=== PATIENT | male | born 1945 | race African-American/Black ===

== ENCOUNTER 2017-03-15 13:23 | Observation (INO) | payer BC, MEDICARE ==
[~2017-03-15] VITALS: Ht 180.3 cm; Wt 65.0 kg
[~2017-03-15 13:23] MED LIST: TAMS0.4C67 PO
[2017-03-15 13:24] VITALS: BP 158/99; PULSE 91; RESP 18; TEMP 98.5; O2SAT 100
[2017-03-15] MEDS ORDERED: SODIUM CHLOR 0.9% 1000 ML INJ 1,000 ML IV SCH (14:03)
[2017-03-15 14:06] VITALS: O2SAT 97
[2017-03-15] MEDS ORDERED: ONDANSETRON HCL 4 MG/2 ML VIAL IVP ONE (14:15)
[2017-03-15] MEDS ORDERED: MORPHINE SULFATE 4 MG/ML INJ IV PUSH ONE (14:15)
[2017-03-15] MEDS ORDERED: LIDOCAINE VISCOUS 2% SOLN 15 ML UDC PO ONE (14:15)
[2017-03-15] MEDS ORDERED: SODIUM CHLORIDE 0.9% FLUSH 10 ML FLUSH IV FLUSH PRN ×2 (14:15→16:15)
[2017-03-15] MEDS ORDERED: ALUMINUM/MAGNESIUM/SIMETH 30 ML CUP PO ONE (14:15)
[2017-03-15] MEDS ORDERED: PANTOPRAZOLE SODIUM 40 MG VIAL IVP ONE (14:15)
--- NOTE | 2017-03-15 14:26 | PD ---
HPI Chief Complaint: GI Complaint Time Seen by Provider: 13:55 Travel History International Travel<30 days: No Contact w/Intl Traveler<30days: No Traveled to known affect area: No History of Present Illness HPI 71-year-old male here for evaluation of epigastric abdominal pain, nausea, and vomiting. Symptoms have been intermittent for the last month. Pain is described as sharp/burning, no modifying factors. Patient reports that he stop drinking alcohol and smoking earlier this year after doing so daily for several years. He is reporting a moderate amount of weight loss since this time. He denies chest pain or dyspnea. Currently the pain is 5 out of 10, no modifying factors. PFSH Past Medical History Genitourinary: Yes (Protatitis) Past Surgical History Prostatectomy: Yes (?) Social History Alcohol Use: No Tobacco Use: No Substance Use: No Allergies-Medications (Allergen,Severity, Reaction): Coded Allergies: No Known Allergies (Verified , 03/15/17) Reported Meds & Prescriptions Reported Meds & Active Scripts Active Review of Systems Except as stated in HPI: all other systems reviewed are Neg Physical Exam Narrative GENERAL: Well-developed, well-nourished, comfortable, no apparent distress. SKIN: Focused skin assessment warm/dry. HEAD: Atraumatic. Normocephalic. EYES: Pupils equal and round. No scleral icterus. No injection or drainage. ENT: No nasal bleeding or discharge. Mucous membranes pink and moist. NECK: Trachea midline. No JVD. CARDIOVASCULAR: Regular rate and rhythm. No murmur appreciated. RESPIRATORY: No accessory muscle use. Clear to auscultation. Breath sounds equal bilaterally. GASTROINTESTINAL: Abdomen soft, nondistended. Moderate epigastric tenderness without peritoneal signs. Rest of abdomen is soft and nontender. Normal bowel sounds. MUSCULOSKELETAL: No obvious deformities. No clubbing. No cyanosis. No edema. NEUROLOGICAL: Awake and alert. No obvious cranial nerve deficits. Motor grossly within normal limits. Normal speech. PSYCHIATRIC: Appropriate mood and affect; insight and judgment normal. Data Data Last Documented VS Vital Signs Date Time Temp Pulse Resp B/P Pulse Ox O2 Delivery O2 Flow Rate FiO2 03/15/17 14:06 97 Room Air 03/15/17 13:24 98.5 91 18 158/99 Orders Electrocardiogram (03/15/17 ) Complete Blood Count With Diff (03/15/17 14:03) Comprehensive Metabolic Panel (03/15/17 14:03) Lipase (03/15/17 14:03) Prothrombin Time / Inr (Pt) (03/15/17 14:03) Act Partial Throm Time (Ptt) (03/15/17 14:03) Urinalysis - C+S If Indicated (03/15/17 14:03) Ct Abd/Pel W Iv Contrast(Rout) (03/15/17 14:03) Iv Access Insert/Monitor (03/15/17 14:03) Ecg Monitoring (03/15/17 14:03) Oximetry (03/15/17 14:03) Morphine Inj (Morphine Inj) (03/15/17 14:15) Ondansetron Inj (Zofran Inj) (03/15/17 14:15) Pantoprazole Inj (Protonix Inj) (03/15/17 14:15) Sodium Chlor 0.9% 1000 Ml Inj (Ns 1000 M (03/15/17 14:03) Sodium Chloride 0.9% Flush (Ns Flush) (03/15/17 14:15) Al-Mag Hy-Si 40-40-4 Mg/Ml Liq (Mag-Al P (03/15/17 14:15) Lidocaine 2% Viscous (Xylocaine 2% Visco (03/15/17 14:15) Ckmb (Isoenzyme) Profile (03/15/17 14:03) Troponin I (03/15/17 14:03) CKMB (03/15/17 14:00) CKMB% (03/15/17 14:00) Iohexol 350 Inj (Omnipaque 350 Inj) (03/15/17 15:28) Labs Laboratory Tests Test 03/15/17 14:00 White Blood Count 11.0 TH/MM3 Red Blood Count 4.69 MIL/MM3 Hemoglobin 15.1 GM/DL Hematocrit 43.7 % Mean Corpuscular Volume 93.3 FL Mean Corpuscular Hemoglobin 32.2 PG Mean Corpuscular Hemoglobin 34.5 % Concent Red Cell Distribution Width 13.3 % Platelet Count 321 TH/MM3 Mean Platelet Volume 8.3 FL Neutrophils (%) (Auto) 79.9 % Lymphocytes (%) (Auto) 13.7 % Monocytes (%) (Auto) 5.9 % Eosinophils (%) (Auto) 0.0 % Basophils (%) (Auto) 0.5 % Neutrophils # (Auto) 8.8 TH/MM3 Lymphocytes # (Auto) 1.5 TH/MM3 Monocytes # (Auto) 0.7 TH/MM3 Eosinophils # (Auto) 0.0 TH/MM3 Basophils # (Auto) 0.1 TH/MM3 CBC Comment DIFF FINAL Differential Comment Prothrombin Time 10.8 SEC Prothromb Time International 1.0 RATIO Ratio Activated Partial 25.4 SEC Thromboplast Time Sodium Level 139 MEQ/L Potassium Level 3.4 MEQ/L Chloride Level 104 MEQ/L Carbon Dioxide Level 27.5 MEQ/L Anion Gap 8 MEQ/L Blood Urea Nitrogen 29 MG/DL Creatinine 1.12 MG/DL Estimat Glomerular Filtration 79 ML/MIN Rate Random Glucose 106 MG/DL Calcium Level 9.2 MG/DL Total Bilirubin 0.7 MG/DL Aspartate Amino Transf 12 U/L (AST/SGOT) Alanine Aminotransferase 18 U/L (ALT/SGPT) Alkaline Phosphatase 65 U/L Total Creatine Kinase 110 U/L Creatine Kinase MB 0.7 NG/ML Troponin I LESS THAN 0.02 NG/ML Total Protein 7.9 GM/DL Albumin 4.2 GM/DL Lipase 88 U/L MDM Medical Decision Making Medical Screen Exam Complete: Yes Emergency Medical Condition: Yes Interpretation(s) EKG: Sinus, rate 79, normal axis, normal intervals, T-wave inversions in inferior and anterior leads, no ST segment abnormalities. Differential Diagnosis Gastritis, peptic ulcer disease, pancreatitis, hepatobiliary disease, ACS Narrative Course Vital signs show heart rate 91, blood pressure 150/99, pulse ox 100% on room air , oral temp of 98.5F. CBC shows WBC 11, hemoglobin 15.1, hematocrit 43.7, platelets 321. CMP is markable for potassium 3.4, BUN 24, GFR 79, otherwise essentially unremarkable. Lipase is 88. Cardiac enzymes are negative. CT abdomen pelvis: CONCLUSION: Questionable peptic ulcer disease with some wall thickening of the distal stomach and first portion of the duodenum. Multiple renal cysts otherwise unremarkable study. Large bladder diverticulum posteriorly. Patient was given a GI cocktail, morphine, Protonix, Zofran, with moderate improvement in symptoms. His symptoms are most likely secondary to peptic ulcer disease, however he does have an abnormal EKG. I am concerned about possible cardiac etiology for the patient's pain. Given ongoing symptoms and abnormal EKG with epigastric pain which could be a chest pain equivalent, the patient will be admitted for overnight observation for serial cardiac enzymes and further treatment and evaluation. Case discussed with hospitalist Dr. Tarango who will admit the patient to his service. Diagnosis Primary Impression: Chest pain Qualified Code: R07.9 - Chest pain, unspecified type Additional Impression: Epigastric abdominal pain Admitting Information Admitting Physician Requests: Observation Vasile Du MD March 15, 2017 14:26
[2017-03-15 14:38] LABS: AUTOMATED NEUTROPHIL # 8.8 TH/MM3 (1.8-7.7); BASOPHIL # 0.1 TH/MM3 (0-0.2); BASOPHIL % 0.5 % (0.0-2.0); HEMATOCRIT 43.7 % (39.0-51.0); HEMO FLAGS DIFF FINAL; LYMPH % 13.7 % (9.0-44.0); LYMPHOCYTE # 1.5 TH/MM3 (1.0-4.8); MEAN CELL VOLUME 93.3 FL (80.0-100.0); MEAN CORPUSCULAR HEMOGLOBIN 32.2 PG (27.0-34.0); MEAN CORPUSCULAR HGB CONC 34.5 % (32.0-36.0); MONO % 5.9 % (0.0-8.0); NEUT % 79.9 % (16.0-70.0); PLATELET COUNT 321 TH/MM3 (150-450); RED BLOOD COUNT 4.69 MIL/MM3 (4.50-5.90); RED CELL DISTRIBUTION WIDTH 13.3 % (11.6-17.2)
[2017-03-15 14:47] LABS: APTT (PATIENT) 25.4 SEC (24.3-30.1); PROTHROMBIN TIME - PATIENT 10.8 SEC (9.8-11.6)
[2017-03-15 14:57] LABS: ALT (GPT) 18 U/L (12-78); ANION GAP 8 MEQ/L (5-15); AST (GOT) 12 U/L (15-37); BICARBONATE 27.5 MEQ/L (21.0-32.0); BLOOD UREA NITROGEN 29 MG/DL (7-18); CHLORIDE 104 MEQ/L (98-107); GLOMERULAR FILTRATION RATE 79 ML/MIN (>89); POTASSIUM 3.4 MEQ/L (3.5-5.1); SODIUM (NA) 139 MEQ/L (136-145)
[2017-03-15 15:06] LABS: ALKALINE PHOSPHATASE 65 U/L (45-117); CREATINE KINASE 110 U/L (39-308); TOTAL BILIRUBIN ADULT 0.7 MG/DL (0.2-1.0)
[2017-03-15 15:18] LABS: CKMB 0.7 NG/ML (0.5-3.6)
[2017-03-15] MEDS ORDERED: IOHEXOL 350 MG/ML 10 ML VIAL (for RAD DIAG) IV ONE (15:28)
--- NOTE | 2017-03-15 15:42 | RADRPT ---
EXAM DATE/TIME: 03/15/2017 15:24 [facility] COMPARISON: No previous studies available for comparison. INDICATIONS : Epigastric pain with nausea and vomiting. IV CONTRAST: 76 cc Omnipaque 350 (iohexol) IV ORAL CONTRAST: No oral contrast ingested. RADIATION DOSE: 9.96 CTDIvol (mGy) MEDICAL HISTORY : Carcinoma, prostate. SURGICAL HISTORY : Prostatectomy. ENCOUNTER: Initial ACUITY: 1 day PAIN SCALE: 6/10 LOCATION: Bilateral upper quadrant TECHNIQUE: Volumetric scanning of the abdomen and pelvis was performed. Using automated exposure control and ad justment of the mA and/or kV according to patient size, radiation dose was kept as low as reasonably achievable to obtain optimal diagnostic quality images. FINDINGS: LOWER LUNGS: The visualized lower lungs are clear. LIVER: Homogeneous density without lesion. There is no dilation of the biliary tree. No calcified gallston es. SPLEEN: Normal size without lesion. PANCREAS: Within normal limits. KIDNEYS: Normal in size and shape. There is no mass, stone or hydronephrosis other than multiple renal cysts, one on the right, 2 on the left. ADRENAL GLANDS: Within normal limits. VASCULAR: There is no aortic aneurysm. BOWEL/MESENTERY: There is a questionable inflammation or wall thickening of the distal stomach first portion of the du odenum correlate for peptic ulcer disease The small bowel, and colon demonstrate no acute abnormality . There is no free intraperitoneal air or fluid. ABDOMINAL WALL: Within normal limits. RETROPERITONEUM: There is no lymphadenopathy. BLADDER: No wall thickening or mass however there is a large bladder diverticulum posteriorly. REPRODUCTIVE: Within normal limits. INGUINAL: There is no lymphadenopathy or hernia. MUSCULOSKELETAL: Within normal limits for patient age. CONCLUSION: Questionable peptic ulcer disease with some wall thickening of the distal stomach and first portion o f the duodenum. Multiple renal cysts otherwise unremarkable study. Large bladder diverticulum posteri melanie. Lit Caruso MD on March 15, 2017 at 15:38 Board Certified Radiologist. This report was verified electronically.
[2017-03-15] MEDS ORDERED: ACETAMINOPHEN/HYDROcodone 325 MG/7.5 MG TAB PO PRN (16:15)
[2017-03-15] MEDS ORDERED: ASPIRIN 81 MG CHEW TAB PO ONE (16:15)
[2017-03-15] MEDS ORDERED: ACETAMINOPHEN 500 MG CPLT PO PRN (16:15)
[2017-03-15] MEDS ORDERED: MORPHINE SULFATE 4 MG/ML INJ IV PRN (16:15)
[2017-03-15] MEDS ORDERED: NITROGLYCERIN 0.4 MG SL 25 TABS/BTL SL PRN (16:15)
[2017-03-15 16:31] VITALS: BP 167/100; PULSE 85; RESP 16; O2SAT 97
[2017-03-15 17:57] VITALS: BP 160/100; PULSE 88; RESP 16; O2SAT 97
--- NOTE | 2017-03-15 18:07 | HHI.HP ---
[facility] No Primary Care Physician Admission Diagnosis chest pain, epigastric abdominal pain Diagnoses: Chief Complaint: Abdominal pain Travel History International Travel<30 Days: No Contact w/Intl Traveler <30 Da: No Traveled to Known Affected Are: No History of Present Illness Written by Wm Tay, acting as scribe for Dr. Tarango on 03/15/17 at 18:06. 71-year-old male with a past medical history of BPH who presented with epigastric pain, nausea, and vomiting. The patient states that for the past several months he's been having episodes of decreased appetite and vomiting. He states these episodes occur about once per month. He describes the vomitus is brown, denies any coffee-ground emesis. He states that when he has these episodes he feels hot but he has a fever. Currently he denies any nausea. He did get some pills in the emergency room that caused him some epigastric discomfort. He denies any chest pain or shortness of breath. He denies any diarrhea, constipation, bloody or dark stools. The patient states that he takes ibuprofen for back pain. He states he normally takes 4 pills in the morning and 4 pills in the evening. He denies any history of heart disease, diabetes, or high cholesterol. He does have insurance, but does not have a PCP or despatch clerk. Review of Systems Except as stated in HPI: all other systems reviewed are Neg Past Family Social History Past Medical History BPH, denies prostate cancer history Past Surgical History Prostate surgery for blockage/enlarged prostate Bilateral inguinal hernia repair Reported Medications Ibuprofen Allergies: Coded Allergies: No Known Allergies (Verified , 03/15/17) Active Ordered Medications Current Medications Medications (Trade) Dose Ordered Sig/Kira Route Start Time Stop Time Status Last Admin (NS Flush) 2 ml BID IV FLUSH 03/15/17 21:00 (NS Flush) 2 ml UNSCH PRN IV FLUSH 03/15/17 16:15 (Nitrostat Sl) 0.4 mg Q5M PRN SL 03/15/17 16:15 (Tylenol) 500 mg Q4H PRN PO 03/15/17 16:15 ([place] 7.5-325 Mg) 1 tab Q4H PRN PO 03/15/17 16:15 (Morphine Inj) 2 mg Q5M PRN IV 03/15/17 16:15 (Protonix) 40 mg DAILY PO 03/16/17 09:00 (Heparin Inj) 5,000 units Q8H SQ 03/15/17 21:00 Family History Reviewed, no family history pertinent to current chief complaint Social History The patient states he quit smoking and drinking earlier this year, but no more. He states that he had been smoking about 1 pack per week. He states that he had been drinking about 3 shots per night. He denies any drug use. Physical Exam Vital Signs Vital Signs Date Time Temp Pulse Resp B/P Pulse Ox O2 Delivery O2 Flow Rate FiO2 03/15/17 16:31 85 16 167/100 97 Room Air 03/15/17 14:06 97 Room Air 03/15/17 13:24 98.5 91 18 158/99 100 Physical Exam GENERAL: Well-developed well-nourished. In no acute distress. SKIN: Warm and dry. No lesions noted. HEENT: Normocephalic. Pupils equal and round. Mucous membranes pink and moist. CARDIOVASCULAR: Regular rate and rhythm. No murmur appreciated. RESPIRATORY: No accessory muscle use. Clear to auscultation. Breath sounds equal bilaterally. GASTROINTESTINAL: Abdomen soft, non-tender, nondistended. Bowel sounds x4. MUSCULOSKELETAL: No obvious deformities. No clubbing or cyanosis. No edema. NEUROLOGICAL: Awake and alert. No focal neurological deficits. Moves upper and lower extremities spontaneously. Normal speech. PSYCHIATRIC: Appropriate mood and affect; insight and judgment normal. Laboratory Laboratory Tests Test 03/15/17 14:00 White Blood Count 11.0 Red Blood Count 4.69 Hemoglobin 15.1 Hematocrit 43.7 Mean Corpuscular Volume 93.3 Mean Corpuscular Hemoglobin 32.2 Mean Corpuscular Hemoglobin 34.5 Concent Red Cell Distribution Width 13.3 Platelet Count 321 Mean Platelet Volume 8.3 Neutrophils (%) (Auto) 79.9 Lymphocytes (%) (Auto) 13.7 Monocytes (%) (Auto) 5.9 Eosinophils (%) (Auto) 0.0 Basophils (%) (Auto) 0.5 Neutrophils # (Auto) 8.8 Lymphocytes # (Auto) 1.5 Monocytes # (Auto) 0.7 Eosinophils # (Auto) 0.0 Basophils # (Auto) 0.1 CBC Comment DIFF FINAL Differential Comment Prothrombin Time 10.8 Prothromb Time International 1.0 Ratio Activated Partial 25.4 Thromboplast Time Sodium Level 139 Potassium Level 3.4 Chloride Level 104 Carbon Dioxide Level 27.5 Anion Gap 8 Blood Urea Nitrogen 29 Creatinine 1.12 Estimat Glomerular Filtration 79 Rate Random Glucose 106 Calcium Level 9.2 Total Bilirubin 0.7 Aspartate Amino Transf 12 (AST/SGOT) Alanine Aminotransferase 18 (ALT/SGPT) Alkaline Phosphatase 65 Total Creatine Kinase 110 Creatine Kinase MB 0.7 Troponin I LESS THAN 0.02 Total Protein 7.9 Albumin 4.2 Lipase 88 Result Diagram: 03/15/17 1400 03/15/17 1400 Imaging Last Impressions Abdomen/Pelvis CT 03/15/17 1403 Signed Impressions: Service Date/Time: , March 15, 2017 15:24 - CONCLUSION: Questionable peptic ulcer disease with some wall thickening of the distal stomach and first portion of the duodenum. Multiple renal cysts otherwise unremarkable study. Large bladder diverticulum posteriorly. Lit Caruso MD Assessment and Plan Assessment and Plan 71-year-old male with a past medical history of BPH who presented with epigastric pain, nausea, and vomiting Peptic ulcer disease: Likely NSAID induced. With associated episodes of epigastric pain, nausea, and vomiting, which have improved at this time. Reviewed: Abdominal CT shows possible peptic ulcer disease with some wall thickening of the distal stomach and first portion of the duodenum. Hemoglobin 15.1. -Start PPI and Carafate -Avoid NSAIDs, patient educated -Diet as tolerated -Antiemetics as needed -Recommended outpatient PCP and GI follow-up. Abnormal EKG: Patient denies any chest pain or shortness of breath. Reviewed: EKG with NSR, LVH, and nonspecific T-wave changes when compared to previous EKGs from 2011. -Rule out ACS per protocol with serial cardiac enzymes and EKGs -Monitor on telemetry DVT prophylaxis: SCDs Hypertension: Chronic, uncontrolled. The patient states that his blood pressure is been high for some time, but he is on no medications. Control BP. Start lisinopril. Vasotec as needed. PCP follow-up. Discussed Condition With Patient, ED staff Attending Statement This note was transcribed by chery Tay. I, Dr. Derek Tarango personally performed the history, physical exam, and medical decision making; and confirmed the accuracy of the information in the transcribed note. Authenticated by Dr. Derek Tarango on 03/15/17 at 18:14. Wm Tay March 15, 2017 18:07 Derek Tarango MD March 15, 2017 18:15
[2017-03-15] MEDS ORDERED: ENALAPRILAT 1.25 MG/ML VIAL IV PUSH PRN (18:15)
[2017-03-15] MEDS ORDERED: ONDANSETRON HCL 4 MG/2 ML VIAL IV PUSH PRN ×2 (18:15)
[2017-03-15 18:16] VITALS: BP 170/102; PULSE 79; RESP 17; TEMP 98.2; O2SAT 98
[2017-03-15] MEDS: LISINOPRIL 10 MG TAB PO SCH (18:43)
[2017-03-15 19:26] VITALS: BP 145/90; PULSE 78; RESP 19; TEMP 98.2; O2SAT 97
[2017-03-15] MEDS ORDERED: HEPARIN SODIUM - SQ 10,000 UNITS/ML VIAL SQ SCH (21:00)
[2017-03-15] MEDS: SODIUM CHLORIDE 0.9% FLUSH 10 ML FLUSH IV FLUSH SCH (21:10)
[2017-03-15 22:16] LABS: CREATINE KINASE 98 U/L (39-308)
[2017-03-16] VITALS (8 sets, daily range): BP systolic 100–121; BP diastolic 64–80; PULSE 57–72; RESP 18–21; TEMP 96.8–98.4; O2SAT 60–97
[2017-03-16 04:00] LABS: HDL CHOLESTEROL 46.2 MG/DL (40.0-60.0)
[2017-03-16 04:02] LABS: CREATINE KINASE 92 U/L (39-308)
[2017-03-16] MEDS: SUCRALFATE 1 GM TAB PO SCH ×2 (06:13→16:21)
[2017-03-16] MEDS ORDERED: PANTOPRAZOLE SOD 40 MG DELAYED RELEASE TAB PO SCH (09:00)
[2017-03-16] MEDS: SODIUM CHLORIDE 0.9% FLUSH 10 ML FLUSH IV FLUSH SCH ×2 (10:10→20:31)
[2017-03-16] MEDS: LISINOPRIL 10 MG TAB PO SCH (10:10)
--- NOTE | 2017-03-16 10:19 | HHI.PR ---
Subjective Remarks Follow up chest pain and epigastric pain. Patient states his abdominal pain and chest pain is getting better, and no further vomiting since admission. He is still unable to tolerate a diet, and states he has no appetite. No fever or chills. No history of EGD or colonoscopy. Objective Vitals Vital Signs Date Time Temp Pulse Resp B/P Pulse Ox O2 Delivery O2 Flow Rate FiO2 03/16/17 08:35 98.2 60 18 104/65 60 03/16/17 03:54 97.8 72 21 100/64 95 03/16/17 00:44 72 03/16/17 00:16 97.9 67 20 102/67 97 03/15/17 21:37 21 03/15/17 19:26 98.2 78 19 145/90 97 03/15/17 18:16 98.2 79 17 170/102 98 03/15/17 17:57 88 16 160/100 97 Room Air 03/15/17 16:31 85 16 167/100 97 Room Air 03/15/17 14:06 97 Room Air 03/15/17 13:24 98.5 91 18 158/99 100 Result Diagram: 03/15/17 1400 03/15/17 1400 Imaging Last Impressions Abdomen/Pelvis CT 03/15/17 1403 Signed Impressions: Service Date/Time: February 15:24 - CONCLUSION: Questionable peptic ulcer disease with some wall thickening of the distal stomach and first portion of the duodenum. Multiple renal cysts otherwise unremarkable study. Large bladder diverticulum posteriorly. Lit Caruso MD Objective Remarks GENERAL: Well-developed well-nourished. In no acute distress. SKIN: Warm and dry. No lesions noted. HEENT: Normocephalic. Pupils equal and round. Mucous membranes pink and moist. CARDIOVASCULAR: Regular rate and rhythm. No murmur appreciated. RESPIRATORY: No accessory muscle use. Clear to auscultation. Breath sounds equal bilaterally. GASTROINTESTINAL: Abdomen soft, slight epigastic tenderness, nondistended. Bowel sounds x4. MUSCULOSKELETAL: No obvious deformities. No clubbing or cyanosis. No edema. NEUROLOGICAL: Awake and alert. No focal neurological deficits. Moves upper and lower extremities spontaneously. Normal speech. PSYCHIATRIC: Appropriate mood and affect; insight and judgment normal. Medications and IVs Current Medications Medications (Trade) Dose Ordered Sig/Kira Route Start Time Stop Time Status Last Admin (NS Flush) 2 ml BID IV FLUSH 03/15/17 21:00 03/15/17 21:10 (NS Flush) 2 ml UNSCH PRN IV FLUSH 03/15/17 16:15 (Nitrostat Sl) 0.4 mg Q5M PRN SL 03/15/17 16:15 (Tylenol) 500 mg Q4H PRN PO 03/15/17 16:15 ([place] 7.5-325 Mg) 1 tab Q4H PRN PO 03/15/17 16:15 (Morphine Inj) 2 mg Q5M PRN IV 03/15/17 16:15 (Protonix) 40 mg DAILY PO 03/16/17 09:00 (Carafate) 1 gm BIDAC PO 03/16/17 07:00 03/16/17 06:13 (Zofran Inj) 4 mg Q6HR PRN IV PUSH 03/15/17 18:15 (Vasotec Inj) 1.25 mg Q6H PRN IV PUSH 03/15/17 18:15 (Prinivil) 10 mg DAILY PO 03/15/17 18:15 03/15/17 18:43 A/P Problem List: (1) Peptic ulcer disease ICD Code: K27.9 Status: Acute (2) Chest pain ICD Code: R07.9 Status: Acute (3) Epigastric abdominal pain ICD Code: R10.13 Status: Acute (4) HTN (hypertension) ICD Code: I10 Status: Chronic Assessment and Plan 71-year-old male with a past medical history of BPH who presented with epigastric pain, nausea, and vomiting Peptic ulcer disease: Likely NSAID induced. With associated episodes of epigastric pain, nausea, and vomiting, which have improved at this time. Reviewed: Abdominal CT shows possible peptic ulcer disease with some wall thickening of the distal stomach and first portion of the duodenum. Hemoglobin 15.1. -Cont PPI and Carafate -Avoid NSAIDs, patient educated -Diet as tolerated -Antiemetics as needed -Cont GI, patient is unable to tolerate diet, with epigastric pain, GI will plan for EGD Abnormal EKG: Patient denies any chest pain or shortness of breath. Reviewed: EKG with NSR, LVH, and nonspecific T-wave changes when compared to previous EKGs from 2010. -Rule out ACS per protocol with serial cardiac enzymes and EKGs, troponin .02 x 3 sets, EKG shows t wave inversion -Monitor on telemetry -Lexiscan possibly tomorrow if pain is not GI related, per patient and EMR last stress test was 2010 Hypertension: Chronic, uncontrolled. The patient states that his blood pressure is been high for some time, but he is on no medications. Currently WNL -Control BP. -Cont lisinopril. -Vasotec as needed. DVT prophylaxis: SCDs Discharge Planning Pending GI workup and lexiscan Problem Qualifiers (1) Chest pain: Qualified Code: R07.9 - Chest pain, unspecified type Samara Ivan March 16, 2017 10:19
--- NOTE | 2017-03-16 10:49 | PD.CONS ---
HPI History of Present Illness This is a 71 year old male who presented to the ER for evaluation of abdominal pain. He states that he has been having an intermittent mid epigastric pain sharp pain without radiation for the past month. He states initially, this was not as frequent, although he does state that when he would have an episode, he would have associated nausea, vomiting, and decreased appetite. He has had 2 prior episodes of this and then this current episode started Sunday and was more severe than usual. He was not able to keep anything down and vomited brown gastric secretions whenever he tried to take po. He denies any hematemesis. The pain is the same pain, but more severe than usual- "5" on scale 0-10. He denies any diarrhea or constipation, melena, or hematochezia. He does occasionally have heartburn and will take a TUMS on a rare occasion. Abdomen/Pelvis CT (03/15/17)----> Questionable peptic ulcer disease with some wall thickening of the distal stomach and first portion of the duodenum. Multiple renal cysts otherwise unremarkable study. Large bladder diverticulum posteriorly. He denies any prior history of peptic ulcer disease. He takes at least 8 ibuprofen per day for chronic back pain. He used to drink a couple of alcoholic drinks per day, but stopped smoking and drinking the first of the year. He denies ever having an EGD/Colonoscopy. He denies any family history of esophageal, gastric, or colorectal cancer. PFSH Past Medical History BPH Past Surgical History Prostate surgery for blockage/enlarged prostate Bilateral inguinal hernia repair Coded Allergies: No Known Allergies (Verified , 03/15/17) Medications Allergies Coded Allergies Type Severity Reaction Last Updated Verified No Known Allergies 03/15/17 Yes Active Scripts Medications Dose Route/Sig Days Date Category Ibuprofen at least 8 per day for chronic back pain Family History Denies any family hx of esophageal, gastric, or colorectal cancer. Social History The patient states he quit smoking and drinking the beginning of this year. He was smoking about 1 pack per week and having 2-3 drinks per night. Review of Systems Constitutional: COMPLAINS OF: Fatigue, Weight loss (minimal), Change in appetite Respiratory: DENIES: Cough, Shortness of breath Cardiovascular: COMPLAINS OF: Chest pain Gastrointestinal: COMPLAINS OF: Abdominal pain, Nausea, Vomiting, Heartburn, DENIES: Black stools, Bloody stools, Constipation, Diarrhea, Hematemesis Musculoskeletal: DENIES: Joint pain Integumentary: DENIES: Abnormal pigmentation Neurologic: DENIES: Headache Psychiatric: DENIES: Confusion GI Exam Vitals I&O Vital Signs Date Time Temp Pulse Resp B/P Pulse Ox O2 Delivery O2 Flow Rate FiO2 03/16/17 08:35 98.2 60 18 104/65 60 03/16/17 03:54 97.8 72 21 100/64 95 03/16/17 00:44 72 03/16/17 00:16 97.9 67 20 102/67 97 03/15/17 21:37 21 03/15/17 19:26 98.2 78 19 145/90 97 03/15/17 18:16 98.2 79 17 170/102 98 03/15/17 17:57 88 16 160/100 97 Room Air 03/15/17 16:31 85 16 167/100 97 Room Air 03/15/17 14:06 97 Room Air 03/15/17 13:24 98.5 91 18 158/99 100 Imaging Last Impressions Abdomen/Pelvis CT 03/15/17 1403 Signed Impressions: Service Date/Time: February 15:24 - CONCLUSION: Questionable peptic ulcer disease with some wall thickening of the distal stomach and first portion of the duodenum. Multiple renal cysts otherwise unremarkable study. Large bladder diverticulum posteriorly. Lit Caruso MD Laboratory Test 03/15/17 03/15/17 03/16/17 14:00 21:08 03:07 White Blood Count 11.0 TH/MM3 Red Blood Count 4.69 MIL/MM3 Hemoglobin 15.1 GM/DL Hematocrit 43.7 % Mean Corpuscular Volume 93.3 FL Mean Corpuscular Hemoglobin 32.2 PG Mean Corpuscular Hemoglobin 34.5 % Concent Red Cell Distribution Width 13.3 % Platelet Count 321 TH/MM3 Mean Platelet Volume 8.3 FL Neutrophils (%) (Auto) 79.9 % Lymphocytes (%) (Auto) 13.7 % Monocytes (%) (Auto) 5.9 % Eosinophils (%) (Auto) 0.0 % Basophils (%) (Auto) 0.5 % Neutrophils # (Auto) 8.8 TH/MM3 Lymphocytes # (Auto) 1.5 TH/MM3 Monocytes # (Auto) 0.7 TH/MM3 Eosinophils # (Auto) 0.0 TH/MM3 Basophils # (Auto) 0.1 TH/MM3 CBC Comment DIFF FINAL Differential Comment Prothrombin Time 10.8 SEC Prothromb Time International 1.0 RATIO Ratio Activated Partial 25.4 SEC Thromboplast Time Sodium Level 139 MEQ/L Potassium Level 3.4 MEQ/L Chloride Level 104 MEQ/L Carbon Dioxide Level 27.5 MEQ/L Anion Gap 8 MEQ/L Blood Urea Nitrogen 29 MG/DL Creatinine 1.12 MG/DL Estimat Glomerular Filtration 79 ML/MIN Rate Random Glucose 106 MG/DL Calcium Level 9.2 MG/DL Total Bilirubin 0.7 MG/DL Aspartate Amino Transf 12 U/L (AST/SGOT) Alanine Aminotransferase 18 U/L (ALT/SGPT) Alkaline Phosphatase 65 U/L Total Creatine Kinase 110 U/L 98 U/L 92 U/L Creatine Kinase MB 0.7 NG/ML Troponin I LESS THAN 0.02 LESS THAN 0.02 LESS THAN 0.02 NG/ML NG/ML NG/ML Total Protein 7.9 GM/DL Albumin 4.2 GM/DL Lipase 88 U/L Triglycerides Level 97 MG/DL Cholesterol Level 212 MG/DL LDL Cholesterol 146 MG/DL HDL Cholesterol 46.2 MG/DL Cholesterol/HDL Ratio 4.58 RATIO Physical Examination HEENT: Normocephalic; atraumatic; no jaundice. CHEST: CTA CARDIAC: RRR ABDOMEN: Soft, nondistended, epigastric tenderness no hepatosplenomegaly; bowel sounds are present in all four quadrants. EXTREMITIES: No clubbing, cyanosis, or edema. SKIN: Normal; no rash; no jaundice. [employer]: No focal deficits; alert and oriented times three. Assessment and Plan Plan ASSESSMENT: - Epigastric pain with abnormal imaging on CT suspicious for peptic ulcer disease. Abdomen/Pelvis CT (03/15/17)----> Questionable peptic ulcer disease with some wall thickening of the distal stomach and first portion of the duodenum. Multiple renal cysts otherwise unremarkable study. Large bladder diverticulum posteriorly. He denies any prior history of peptic ulcer disease. He takes at least 8 ibuprofen per day for chronic back pain. Intermittent epigastric pain with associated decreased appetite, n/v (nonbloody) x 1 month, this episode began Sunday. No hx of PUD. Never had egd/colonoscopy. HH stable. NPO. PPI. - GERD. Occasional symptoms. Takes TUMS as needed at home. - Hyperlipidemia, BPH per primary PLAN: - Plan for EGD today - Obtain consents - NPO - Cont. PPI - Monitor labs - Further recommendations to follow based on results of above - PT seen and examined by Dr. Copeland and myself and this note is written on his behalf Radhika Ponce March 16, 2017 10:49
[2017-03-16 13:42] LABS: BLOOD, URINE NEG (NEG); GLUCOSE,URINE NEG (NEG); KETONE, URINE 10 mg/dL (NEG); MUCUS URINE FEW /lpf (OCC); NITRITE,URINE NEG (NEG); PH, URINE 6.5 (5.0-8.5); SQUAMOUS EPITHELIAL CELL URINE <1 /hpf (0-5); URINE COLOR YELLOW (YELLW/STRAW)
[2017-03-16 13:46] LABS: AUTOMATED NEUTROPHIL # 3.5 TH/MM3 (1.8-7.7); BASOPHIL % 0.6 % (0.0-2.0); EOSINOPHIL % 0.5 % (0.0-4.0); HEMATOCRIT 40.3 % (39.0-51.0); HEMO FLAGS DIFF FINAL; LYMPH % 40.9 % (9.0-44.0); MEAN CELL VOLUME 94.2 FL (80.0-100.0); MEAN CORPUSCULAR HEMOGLOBIN 31.2 PG (27.0-34.0); MEAN CORPUSCULAR HGB CONC 33.1 % (32.0-36.0); MONO % 9.5 % (0.0-8.0); NEUT % 48.5 % (16.0-70.0); PLATELET COUNT 286 TH/MM3 (150-450); RED BLOOD COUNT 4.27 MIL/MM3 (4.50-5.90); RED CELL DISTRIBUTION WIDTH 13.4 % (11.6-17.2); WHITE BLOOD COUNT 7.2 TH/MM3 (4.0-11.0)
[2017-03-16 13:47] LABS: COMMENT (UR) CULT NOT INDICATED; CULTURE IF INDICATED CULT NOT INDICATED
[2017-03-16 14:02] LABS: BICARBONATE 29.7 MEQ/L (21.0-32.0); POTASSIUM 3.5 MEQ/L (3.5-5.1)
[2017-03-16] MEDS: PANTOPRAZOLE SOD 40 MG DELAYED RELEASE TAB PO SCH (20:30)
--- NOTE | 2017-03-16 21:07 | EKG ---
Date Performed: 03/16/2017 Time Performed: 02:32:36 PTAGE: 71 years EKG: Sinus rhythm MODERATE T-WAVE ABNORMALITY, CONSIDER ANTEROLATERAL ISCHEMIA MODERATE T-WAVE ABNORMALITY, CONSIDER I NFERIOR ISCHEMIA ABNORMAL ECG PREVIOUS TRACING : 03/15/2017 13.36 Compared to prior tracing no significant change DOCTOR: Sha Lainez Interpretating Date/Time 03/16/2017 21:06:35
--- NOTE | 2017-03-16 21:30 | EKG ---
Date Performed: 03/15/2017 Time Performed: 19:59:59 PTAGE: 71 years EKG: Sinus rhythm WITH OCCASIONAL SUPRAVENTRICULAR PREMATURE COMPLEXES MODERATE T-WAVE ABNORMALITY, CONSIDER ANTERIOR ISCHEMIA ABNORMAL ECG NO PREVIOUS TRACING DOCTOR: Sha Lainez Interpretating Date/Time 03/16/2017 21:28:36
--- NOTE | 2017-03-16 21:49 | EKG ---
Date Performed: 03/15/2017 Time Performed: 13:36:08 PTAGE: 71 years EKG: Sinus rhythm NONSPECIFIC T-WAVE ABNORMALITY BORDERLINE ECG PREVIOUS TRACING : 10/26/2011 10.48 Compared to prior tracing no significant change DOCTOR: Sha Lainez Interpretating Date/Time 03/16/2017 21:49:23
[2017-03-17] VITALS (9 sets, daily range): BP systolic 99–132; BP diastolic 60–85; PULSE 56–76; RESP 18; TEMP 96.8–98.8; O2SAT 96–99
[2017-03-17 06:06] LABS: AUTOMATED NEUTROPHIL # 2.8 TH/MM3 (1.8-7.7); BASOPHIL # 0.1 TH/MM3 (0-0.2); BASOPHIL % 1.1 % (0.0-2.0); EOSINOPHIL # 0.1 TH/MM3 (0-0.4); EOSINOPHIL % 1.5 % (0.0-4.0); HEMATOCRIT 39.4 % (39.0-51.0); HEMO FLAGS DIFF FINAL; LYMPH % 43.1 % (9.0-44.0); LYMPHOCYTE # 2.8 TH/MM3 (1.0-4.8); MEAN CELL VOLUME 94.1 FL (80.0-100.0); MEAN CORPUSCULAR HEMOGLOBIN 30.9 PG (27.0-34.0); MEAN CORPUSCULAR HGB CONC 32.8 % (32.0-36.0); MONO % 10.4 % (0.0-8.0); NEUT % 43.9 % (16.0-70.0); PLATELET COUNT 266 TH/MM3 (150-450); RED BLOOD COUNT 4.18 MIL/MM3 (4.50-5.90); RED CELL DISTRIBUTION WIDTH 13.1 % (11.6-17.2); WHITE BLOOD COUNT 6.4 TH/MM3 (4.0-11.0)
[2017-03-17 06:23] LABS: BICARBONATE 27.8 MEQ/L (21.0-32.0); POTASSIUM 3.4 MEQ/L (3.5-5.1)
[2017-03-17] MEDS: SUCRALFATE 1 GM TAB PO SCH ×2 (06:23→16:27)
--- NOTE | 2017-03-17 08:36 | HHI.PR ---
Subjective Remarks Follow up for epigastric pain. The patient reports feeling better today. Denies any significant epigastric pain, says occasionally he just feels sore. Denies any chest pains. Denies any nausea/vomiting. Going for EGD today. He states he has his appetite back and wants to eat after the procedure. Objective Vitals Vital Signs Date Time Temp Pulse Resp B/P Pulse Ox O2 Delivery O2 Flow Rate FiO2 03/17/17 08:26 98.0 66 18 118/72 96 03/17/17 04:20 98.4 65 18 99/60 97 03/17/17 00:59 60 03/17/17 00:21 97.8 56 18 120/74 99 03/16/17 20:00 98.4 62 18 121/76 97 03/16/17 16:27 57 03/16/17 15:44 97.9 68 18 112/80 95 03/16/17 12:19 96.8 63 18 112/70 96 03/16/17 08:35 98.2 60 18 104/65 60 Result Diagram: 03/17/17 0427 03/17/17 0427 Imaging Last Impressions Abdomen/Pelvis CT 03/15/17 1403 Signed Impressions: Service Date/Time: February 15:24 - CONCLUSION: Questionable peptic ulcer disease with some wall thickening of the distal stomach and first portion of the duodenum. Multiple renal cysts otherwise unremarkable study. Large bladder diverticulum posteriorly. Lit Caruso MD Objective Remarks GENERAL: Well-nourished, well-developed male patient in [facility]. SKIN: Warm and dry. No rash. HEENT: Normocephalic. Atraumatic. Pupils equal and round. Mucous membranes pink and moist. NECK: Supple. Trachea midline. CARDIOVASCULAR: Regular rate and rhythm. S1, S2 noted. No murmur appreciated. RESPIRATORY: No accessory muscle use. Clear to auscultation. Breath sounds equal bilaterally. GASTROINTESTINAL: Abdomen soft, non-tender, nondistended. Normoactive bowel sounds x4. MUSCULOSKELETAL: No obvious deformities. Extremities without clubbing, cyanosis , or edema. NEUROLOGICAL: Awake and alert. No obvious cranial nerve deficits. Motor grossly within normal limits. Normal speech. PSYCHIATRIC: Appropriate mood and affect; insight and judgment normal. Medications and IVs Current Medications Medications (Trade) Dose Ordered Sig/Kira Route Start Time Stop Time Status Last Admin (NS Flush) 2 ml BID IV FLUSH 03/15/17 21:00 03/16/17 20:31 (NS Flush) 2 ml UNSCH PRN IV FLUSH 03/15/17 16:15 (Nitrostat Sl) 0.4 mg Q5M PRN SL 03/15/17 16:15 (Tylenol) 500 mg Q4H PRN PO 03/15/17 16:15 ([place] 7.5-325 Mg) 1 tab Q4H PRN PO 03/15/17 16:15 (Morphine Inj) 2 mg Q5M PRN IV 03/15/17 16:15 (Carafate) 1 gm BIDAC PO 03/16/17 07:00 03/17/17 06:23 (Zofran Inj) 4 mg Q6HR PRN IV PUSH 03/15/17 18:15 (Vasotec Inj) 1.25 mg Q6H PRN IV PUSH 03/15/17 18:15 (Prinivil) 10 mg DAILY PO 03/15/17 18:15 03/16/17 10:10 (Protonix) 40 mg BID PO 03/16/17 21:00 03/16/17 20:30 A/P Problem List: (1) Peptic ulcer disease ICD Code: K27.9 Status: Acute (2) Chest pain ICD Code: R07.9 Status: Acute (3) Epigastric abdominal pain ICD Code: R10.13 Status: Acute (4) HTN (hypertension) ICD Code: I10 Status: Chronic Assessment and Plan 71-year-old male with a past medical history of BPH who presented with epigastric pain, nausea, and vomiting Peptic ulcer disease: suspect NSAID induced, patient taking 8 ibuprofen tabs daily for chronic back pain. Associated episodes of epigastric pain, nausea, and vomiting, which have improved at this time. Reviewed: Abdominal CT shows possible peptic ulcer disease with some wall thickening of the distal stomach and first portion of the duodenum. Hemoglobin 15.1. -Cont PPI and Carafate -Avoid NSAIDs, patient educated -Diet as tolerated -Antiemetics as needed -Consult GI, plan for EGD today -diet per GI after procedure Abnormal EKG: Patient denies any chest pain or shortness of breath. Reviewed: EKG with NSR, LVH, and nonspecific T-wave changes when compared to previous EKGs from 2011. -Ruled out ACS per protocol with serial cardiac enzymes and EKGs, troponin .02 x 3 sets, EKG shows t wave inversion -Monitor on telemetry -Per patient and EMR last stress test was 2010, patient does not want to stay in hospital for stress test which is reasonable at this time with NO chest pain and negative troponins, recommended he talk with his PCP about referral to cardiology for outpatient nuclear stress test Hypertension: Chronic, uncontrolled. The patient states that his blood pressure is been high for some time, but he is not on medications. Currently WNL -Control BP. -Continue lisinopril. -Vasotec as needed. -BP much improved BRENDA: Cr 1.41, suspect secondary to dehydration from recent vomiting -give IVF -monitor BMP, renal function improving DVT prophylaxis: SCDs, avoid chemical prophylaxis with upcoming procedure Discharge Planning Possible discharge today after EGD. Discharge patient to home Condition on discharge: Improved Heart Healthy Diet as tolerated Ad Diane activity Rx written: Protonix, Carafate Follow-up with primary care physician, cardiology, and gastroenterology Problem Qualifiers (1) Chest pain: Qualified Code: R07.9 - Chest pain, unspecified type Becky Rascon PA-C March 17, 2017 8:36 am
[2017-03-17] MEDS: LISINOPRIL 10 MG TAB PO SCH (08:40)
[2017-03-17] MEDS: SODIUM CHLORIDE 0.9% FLUSH 10 ML FLUSH IV FLUSH SCH ×2 (08:40→21:26)
[2017-03-17] MEDS: PANTOPRAZOLE SOD 40 MG DELAYED RELEASE TAB PO SCH ×2 (08:40→21:26)
--- NOTE | 2017-03-17 13:35 | PD.PROCEDR ---
GI Procedure REFERRING PHYSICIAN Marcos PROCEDURE PERFORMED EGD with biopsy INDICATION FOR PROCEDURE Hematemesis PROCEDURE: The procedure, risks and benefits were discussed with Mr. Sumner and informed consent was obtained. Anesthesia sedated him with Diprivan. He was placed in the left lateral decubitus position. EGD: The Pentax videoscope was introduced through the oropharynx and advanced to the second portion of the duodenum under direct visualization. Retroflexion was performed in the stomach. FINDINGS: The esophagus this was unremarkable The stomach there was a small hiatal hernia there was a moderately sized antral ulcer deep but clean-based with raised edges these were biopsied there was a second smaller ulcer in the antrum clean base no visible vessel no blood or bleeding in the stomach the rest of the gastric mucosa was unremarkable The duodenum this was normal ESTIMATED BLOOD LOSS: None SPECIMENS REMOVED: Gastric samples COMPLICATIONS: None IMPRESSION: Gastric ulcers PLAN: Await biopsy Avoid NSAIDs Continue PPI Supportive care Monitor labs and transfuse if needed EGD in 2 months If all is stable tomorrow May advance diet and if tolerated may be discharged later in the day Ilia Kurtz MD March 17, 2017 13:34
[2017-03-17] MEDS ORDERED: PROPOFOL 200 MG/20 ML AMP IV ONE (13:43)
[2017-03-17] MEDS ORDERED: DO NOT ADM ANY ANTICOAGULANT DRUGS PRN (14:00)
[2017-03-17] MEDS ORDERED: POTASSIUM CHLORIDE 20 MEQ CONTROLLED RELEASE TAB PO ONE (15:30)
[2017-03-18 00:37] VITALS: BP 110/71; PULSE 88; RESP 18; TEMP 98.4; O2SAT 97
[2017-03-18 01:46] VITALS: PULSE 60
[2017-03-18 05:34] VITALS: BP 107/64; PULSE 60; RESP 18; TEMP 98.4; O2SAT 97
[2017-03-18] MEDS: SUCRALFATE 1 GM TAB PO SCH (06:22)
[2017-03-18] MEDS ORDERED: LISI10TA3 PO (07:55)
[2017-03-18] MEDS ORDERED: PANT40TA3 PO (07:55)
[2017-03-18] MEDS ORDERED: CARA1TAB6 PO (07:55)
[2017-03-18] MEDS ORDERED: ATOR40TA16 PO (07:55)
--- NOTE | 2017-03-18 07:56 | HHI.DCPOC ---
Discharge Care Plan Diagnosis: (1) Gastric ulcer due to nonsteroidal anti-inflammatory drug (NSAID) (2) HTN (hypertension) (3) Epigastric abdominal pain (4) Hyperlipidemia Goals to Promote Your Health * To prevent worsening of your condition and complications * To maintain your health at the optimal level Directions to Meet Your Goals Take your medications as prescribed Follow your dietary instruction Follow activity as directed Keep your appointments as scheduled Take your immunizations and boosters as scheduled If your symptoms worsen call your PCP, if no PCP go to Urgent Care Center or Emergency Room Smoking is Dangerous to Your Health. Avoid second hand smoke Call the 24-hour hour crisis hotline for domestic abuse at Becky Rascon PA-C March 18, 2017 7:56 am
[2017-03-18 08:00] VITALS: PULSE 56
--- NOTE | 2017-03-18 08:11 | HHI.DS ---
cc: Ilia Kurtz MD Discharge Summary Admission Date March 15, 2017 at 4:13 pm Discharge Date: March 18, 2017 Admitting Diagnosis chest pain, epigastric abdominal pain (1) Gastric ulcer due to nonsteroidal anti-inflammatory drug (NSAID) ICD Code: T39.391A Diagnosis: Principal (2) Peptic ulcer disease ICD Code: K27.9 Diagnosis: Principal (3) Epigastric abdominal pain ICD Code: R10.13 Diagnosis: Secondary (4) HTN (hypertension) ICD Code: I10 Diagnosis: Secondary (5) Hyperlipidemia ICD Code: E78.5 Diagnosis: Secondary Procedures 03/17/17 - EGD by Dr. Kurtz showed: -The esophagus this was unremarkable -The stomach there was a small hiatal hernia there was a moderately sized antral ulcer deep but clean-based with raised edges these were biopsied there was a second smaller ulcer in the antrum clean base no visible vessel no blood or bleeding in the stomach the rest of the gastric mucosa was unremarkable. -The duodenum this was normal Brief History - From Admission 71-year-old male with a past medical history of BPH who presented with epigastric pain, nausea, and vomiting. The patient states that for the past several months he's been having episodes of decreased appetite and vomiting. He states these episodes occur about once per month. He describes the vomitus is brown, denies any coffee-ground emesis. He states that when he has these episodes he feels hot but he has a fever. Currently he denies any nausea. He did get some pills in the emergency room that caused him some epigastric discomfort. He denies any chest pain or shortness of breath. He denies any diarrhea, constipation, bloody or dark stools. The patient states that he takes ibuprofen for back pain. He states he normally takes 4 pills in the morning and 4 pills in the evening. He denies any history of heart disease, diabetes, or high cholesterol. He does have insurance, but does not have a PCP or molder sweep. CBC/BMP: 03/17/17 0427 03/17/17 0427 Significant Findings Laboratory Tests Test 5/03/15/17 03/16/17 03/16/17 14:00 21:08 03:07 13:00 Neutrophils (%) (Auto) 79.9 % (16.0-70.0) Neutrophils # (Auto) 8.8 TH/MM3 (1.8-7.7) Potassium Level 3.4 MEQ/L (3.5-5.1) Blood Urea Nitrogen 29 MG/DL (7-18) Estimat Glomerular Filtration 79 ML/MIN (>89) Rate Aspartate Amino Transf 12 U/L (15-37) (AST/SGOT) Troponin I LESS THAN 0.02 LESS THAN 0.02 LESS THAN 0.02 NG/ML NG/ML NG/ML (0.02-0.05) (0.02-0.05) (0.02-0.05) Cholesterol Level 212 MG/DL (120-200) LDL Cholesterol 146 MG/DL (0-99) Urine Specific [place] 1.050 (1.002-1.035) Urine Protein 30 mg/dL (NEG-TRACE) Urine Ketones 10 mg/dL (NEG) Urine Leukocyte Esterase TRACE (NEG) Urine WBC 8 /hpf (0-5) Urine Mucus FEW /lpf (OCC) Test 03/16/17 03/17/17 13:33 04:27 Red Blood Count 4.27 MIL/MM3 4.18 MIL/MM3 (4.50-5.90) (4.50-5.90) Monocytes (%) (Auto) 9.5 % (0.0-8.0) 10.4 % (0.0-8.0) Anion Gap 4 MEQ/L (5-15) Blood Urea Nitrogen 34 MG/DL (7-18) 32 MG/DL (7-18) Creatinine 1.41 MG/DL 1.31 MG/DL (0.60-1.30) (0.60-1.30) Estimat Glomerular Filtration 60 ML/MIN (>89) 66 ML/MIN (>89) Rate Hemoglobin 12.9 GM/DL (13.0-17.0) Potassium Level 3.4 MEQ/L (3.5-5.1) Calcium Level 8.4 MG/DL (8.5-10.1) Imaging Last Impressions Abdomen/Pelvis CT 03/15/17 6583 Signed Impressions: Service Date/Time: February 15:24 - CONCLUSION: Questionable peptic ulcer disease with some wall thickening of the distal stomach and first portion of the duodenum. Multiple renal cysts otherwise unremarkable study. Large bladder diverticulum posteriorly. Lit Caruso MD PE at Discharge GENERAL: Well-nourished, well-developed male patient in [facility]. SKIN: Warm and dry. No rash. HEENT: Normocephalic. Atraumatic. Pupils equal and round. Mucous membranes pink and moist. NECK: Supple. Trachea midline. CARDIOVASCULAR: Regular rate and rhythm. S1, S2 noted. No murmur appreciated. RESPIRATORY: No accessory muscle use. Clear to auscultation. Breath sounds equal bilaterally. GASTROINTESTINAL: Abdomen soft, non-tender, nondistended. Normoactive bowel sounds x4. MUSCULOSKELETAL: No obvious deformities. Extremities without clubbing, cyanosis , or edema. NEUROLOGICAL: Awake and alert. No obvious cranial nerve deficits. Motor grossly within normal limits. Normal speech. PSYCHIATRIC: Appropriate mood and affect; insight and judgment normal. Pt update on day of discharge The patient tolerated his liquid dinner last night and wants to try more solid food for breakfast. He wants to go home. Denies any abdominal pain, nausea/ vomiting. Discussed starting statin for his LDL 124, patient agrees. Also discussed stopping all NSAIDs, patient verbalized understanding. Hospital Course 71-year-old male with a past medical history of BPH who presented with epigastric pain, nausea, and vomiting Gastric Ulcers/PUD: NSAID induced, patient taking 8 ibuprofen tabs daily for chronic back pain. Patient presents with epigastric pain, nausea, and vomiting , after taking 8 ibuprofens daily for back pain. Abdominal CT upon arrival shows possible peptic ulcer disease with some wall thickening of the distal stomach and first portion of the duodenum. Hemoglobin 15.1. He was started on Protonix and Carafate. NSAIDs discontinued and patient counseled on stopping all NSAIDs, he verbalized understanding. GI was consulted, EGD done by Dr. Kurtz on 03/17, showed moderately sized antral ulcer deep but clean-based with raised edges these were biopsied there was a second smaller ulcer in the antrum clean base no visible vessel no blood or bleeding. Diet was advanced to clear liquid after the procedure and patient tolerated well; therefore diet was advanced to regular. GI recommended await biopsy, avoid NSAIDs, Continue PPI, and repeat EGD in 2 months. Abnormal EKG: Patient denies any chest pain or shortness of breath but did have upper epigastric pain upon arrival, suspect secondary to above. Reviewed EKG with NSR, LVH, and nonspecific T-wave changes when compared to previous EKGs from 2010. Ruled out ACS per protocol with serial cardiac enzymes and EKGs, troponin .02 x 3 sets, EKG shows t wave inversion. Monitor on telemetry, no acute events. Per patient and EMR last stress test was 2010, patient does not want to stay in hospital for stress test which is reasonable at this time with NO chest pain and negative troponins, recommended he talk with his PCP about referral to cardiology for outpatient nuclear stress test, patient verbalized understanding. No aspirin secondary to gastric ulcer. Hyperlipidemia: new diagnosis, LDL 146. 10-year ASCVD Risk Score 8.7%, moderate to high intensity statin recommended. Discussed with the patient, agrees to statin therapy, started atorvastatin 40mg hs. Hypertension: Chronic, uncontrolled. The patient states that his blood pressure is been high for some time, but he is not on medications. Continue lisinopril 10mg daily. BP much improved. BRENDA: Cr 1.41, suspect secondary to dehydration from recent vomiting. Given IVF. monitor BMP, renal function improved with Cr 1.31. Recommended continuing oral hydration. Pt Condition on Discharge: Stable Discharge Disposition: Discharge Home Discharge Time: > 30 minutes Discharge Instructions DIET: Follow Instructions for: Heart Healthy Diet Activities you can perform: Regular-No Restrictions Follow up Referrals: Gastroenterology - 1 Week with Ilia Kurtz MD PCP Follow-up - 1 Week New Medications: Atorvastatin (Atorvastatin) 40 Mg Tab 40 MG PO HS Cholesterol Management #30 Ref 0 TAB Lisinopril (Lisinopril) 10 Mg Tab 10 MG PO DAILY Blood Pressure Management #30 TAB Pantoprazole (Pantoprazole) 40 Mg Tab 40 MG PO BID gastric ulcer #60 TAB Sucralfate (Carafate) 1 Gm Tab 1 GM PO BIDAC gastric ulcers #60 TAB Becky Rascon PA-C March 18, 2017 08:11 Becky Rascon PA-C March 18, 2017 8:11 am
[2017-03-18 08:46] VITALS: BP 115/72; PULSE 59; RESP 16; TEMP 97.6; O2SAT 98
[2017-03-18] MEDS: PANTOPRAZOLE SOD 40 MG DELAYED RELEASE TAB PO SCH (08:48)
[2017-03-18] MEDS: SODIUM CHLORIDE 0.9% FLUSH 10 ML FLUSH IV FLUSH SCH (08:48)
[2017-03-18] MEDS: LISINOPRIL 10 MG TAB PO SCH (08:48)
== END 2017-03-18 10:52 | disposition home or self-care (01) ==
LOC: NEPD 13:23 → NEDA 16:13 → NEPHCDU 18:13
PROVIDERS: ADMIT Internal Medicine; ATTEND Internal Medicine
DX: K25.3 Acute gastric ulcer without hemorrhage or perforation (principal); K29.50 Unspecified chronic gastritis without bleeding; T39.395A Adverse effect of other nonsteroidal anti-inflammatory drugs [NSAID], initial encounter; K44.9 Diaphragmatic hernia without obstruction or gangrene; I10 Essential (primary) hypertension; N17.9 Acute kidney failure, unspecified; E78.5 Hyperlipidemia, unspecified; N40.0 Benign prostatic hyperplasia without lower urinary tract symptoms; G89.29 Other chronic pain; M54.9 Dorsalgia, unspecified; R94.31 Abnormal electrocardiogram [ECG] [EKG]; R07.9 Chest pain, unspecified; K21.9 Gastro-esophageal reflux disease without esophagitis; Z87.891 Personal history of nicotine dependence; Z85.46 Personal history of malignant neoplasm of prostate
CPT/HCPCS: 43239; 74177; 80048; 80053; 80061; 81001; 82550; 82552; 83690; 84484; 85025; 85610; 85730; 88305; 88312; 93005; 96361; 96374; 96375; 99285; C9113; G0378; J2270; J2405; J7030; Q9967